=== PATIENT | female | born 1955 | race Caucasian/White ===

== ENCOUNTER 2016-11-22 14:42 | Emergency (ER) | payer MEDICARE ==
[2016-11-22 15:41] VITALS: BP 137/67
--- NOTE | 2016-11-22 16:11 | UC ---
Shivani Zafar Alok, scribed for Mario Mason MD on 11/22/16 at 1556 . FLU HPI - HPI Summary HPI Summary: 61F presents to the ED for a cough for the past 1.5 weeks. Pt states what began as slight nasal discharge and slight cough, progressed to mucous build up in the throat/chest, followed by back ache, chills, and a slight, subjective fever as well as a deeper cough with thicker mucous. Pt also notes raspy-ness at night as well as a left shoulder blade muscle spasm yesterday. Pt notes face/ ear fullness. Pt states in general her symptoms are worse at night. Pt has been taking Robitussin with no effect as well as ibuprofen for relief. Pt denies medications, tobacco, or ETOH. Pt is allergic to Ceclor. PSHx includes gallbladder surgery. - History of Current Complaint Chief Complaint: UCGeneralIllness Stated Complaint: COUGH,SORE SHOULDER Time Seen by Provider: 11/22/16 15:43 Hx Obtained From: Patient ?: No Onset/Duration: Lasting Weeks, Still Present Severity Currently: Moderate Severity Initially: Severe Associated Signs & Symptoms: Positive: Fever, Myalgia, Cough, Nasal Congestion - Allergy/Home Medications Allergies/Adverse Reactions: Allergies Allergy/AdvReac Type Severity Reaction Status Date / Time ceclor AdvReac Intermediate Nausea Uncoded 11/22/16 15:30 PMH/Surg Hx/FS Hx/Imm Hx Previously Healthy: Yes - Surgical History Surgical History: Yes Surgery Procedure, Year, and Place: lap cholecystectomy 2012 - pt unsure when - Social History Occupation: Disabled Lives: With Family Alcohol Use: None Substance Use Type: None Smoking Status (MU): Never Smoked Tobacco - Immunization History Most Recent Influenza Vaccination: not this year, never pt states Most Recent Pneumonia Vaccination: pt states no Review of Systems Constitutional: Fever, Chills, Fatigue ENT: Nasal Discharge, Other - face/ear fullness Respiratory: Cough Musculoskeletal: Myalgia All Other Systems Reviewed And Are Negative: Yes Physical Exam Triage Information Reviewed: Yes Appearance: Well-Appearing, No Pain Distress, Well-Nourished Vital Signs: Initial Vital Signs Temp 98.1 F 11/22/16 15:31 Pulse 84 11/22/16 15:31 Resp 18 11/22/16 15:31 BP 137/67 11/22/16 15:31 Pulse Ox 99 11/22/16 15:31 Vital Signs Reviewed: Yes Eyes: Positive: Conjunctiva Clear ENT: Positive: Hearing grossly normal, Pharynx normal, Nasal congestion, TMs normal, Other: - bilateral maxiallary sinus tenderness Neck: Positive: Supple, Nontender Respiratory: Positive: Chest non-tender, Lungs clear, Normal breath sounds Cardiovascular: Positive: RRR, No Murmur Abdomen Description: Positive: Nontender Musculoskeletal: Positive: Strength Intact, ROM Intact, No Edema Neurological: Positive: Alert, Muscle Tone Normal Psychological: Positive: Age Appropriate Behavior Skin: Negative: rashes Flu Course/Dx - Course Course Of Treatment: 61 yr old female with sinus congestion, post nasal drip, and cough for 1.5 weeks. Will treat for sinusitis. - Differential Dx/Diagnosis Provider Diagnoses: Sinusitis. Cough Discharge - Discharge Plan Condition: Good Disposition: HOME Prescriptions: Azithromycin TAB* [Zithromax TAB (Z-KYM) 250 mg #6 tabs] 2 tab PO .TODAY, THEN 1 DAILY #1 kym Patient Education Materials: Sinusitis (ED) Referrals: Jovon Charles MD [Primary Care Provider] - The documentation as recorded by the Shivani borges Alok accurately reflects the service I personally performed and the decisions made by , Mario Mason MD.
== END 2016-11-22 16:10 | disposition home or self-care (01) ==
LOC: UCEAST 14:42
DX: J32.9 Chronic sinusitis, unspecified (principal); R05 Cough; Z88.1 Allergy status to other antibiotic agents; Z90.49 Acquired absence of other specified parts of digestive tract
CPT/HCPCS: 99212; G0463

== ENCOUNTER 2017-04-16 16:32 | Emergency (ER) | payer MEDICARE ==
[2017-04-16 16:40] VITALS: BP 155/76
--- NOTE | 2017-04-16 16:52 | UC ---
Ear Complaint HPI - HPI Summary HPI Summary: Right ear has a crackling feeling---did have some cerumen come out of ear that seemed to make cracking worse - History of Current Complaint Chief Complaint: UCEar Stated Complaint: R EAR PAIN Time Seen by Provider: 04/16/17 16:36 Hx Obtained From: Patient ?: No Onset/Duration: Gradual Onset, Lasting Days Severity Initially: Mild Severity Currently: Mild Pain Intensity: 3 Pain Scale Used: 0-10 Numeric Aggravating Factors: Nothing Alleviating Factors: Nothing - Allergies/Home Medications Allergies/Adverse Reactions: Allergies Allergy/AdvReac Type Severity Reaction Status Date / Time ceclor AdvReac Intermediate Nausea Uncoded 11/22/16 15:30 Home Medications: Home Medications Ibuprofen [Advil] 400 mg PO 04/16/17 [History] PMH/Surg Hx/FS Hx/Imm Hx Previously Healthy: No - Surgical History Surgical History: Yes Surgery Procedure, Year, and Place: lap cholecystectomy 2012 - pt unsure when, has a spot on her lung that her doctor is working her up for 04/26 - Family History Known Family History: Positive: None - Social History Occupation: Retired Lives: With Family Alcohol Use: None Substance Use Type: None Smoking Status (MU): Never Smoked Tobacco - Immunization History Most Recent Influenza Vaccination: not this year, never pt states Most Recent Pneumonia Vaccination: pt states no Review of Systems Constitutional: Negative Skin: Negative Eyes: Negative ENT: Dental Pain - for recent dental extraction, Ear Ache - right ear Respiratory: Negative Cardiovascular: Negative Gastrointestinal: Negative Genitourinary: Negative Motor: Negative Neurovascular: Negative Musculoskeletal: Negative Neurological: Negative Psychological: Negative Is Patient Immunocompromised?: No All Other Systems Reviewed And Are Negative: Yes Physical Exam Triage Information Reviewed: Yes Appearance: Well-Appearing, Well-Nourished, Obese Vital Signs: Initial Vital Signs Temp 97.4 F 04/16/17 16:35 Pulse 99 04/16/17 16:35 Resp 18 04/16/17 16:35 BP 155/76 04/16/17 16:35 Pulse Ox 99 04/16/17 16:35 Vital Signs Reviewed: Yes Eye Exam: Normal Eyes: Positive: Conjunctiva Clear ENT Exam: Normal ENT: Positive: Normal ENT inspection, Hearing grossly normal, Pharynx normal, TMs normal - left, Other: - right ear cerumen impaction. Negative: Nasal congestion, Nasal drainage, Trismus, Muffled/hoarse voice Dental Exam: Normal Dental: Positive: Other: - healing dental extraction right posterior gum Neck exam: Normal Neck: Positive: Supple, Nontender Respiratory Exam: Normal Respiratory: Positive: Chest non-tender, No respiratory distress, No accessory muscle use Cardiovascular Exam: Normal Cardiovascular: Positive: RRR, Pulses Normal, Brisk Capillary Refill Musculoskeletal Exam: Normal Musculoskeletal: Positive: Strength Intact, ROM Intact, No Edema Neurological Exam: Normal Neurological: Positive: Alert, Muscle Tone Normal Psychological Exam: Normal Skin Exam: Normal Re-Evaluation - Re-Evaluation First Eval Change: Improved - Ear flushed cerumen removed with ease Ear Complaint Course/Dx - Course Course Of Treatment: use Ibuprofen for dental pain, follow blood pressure with Dr. Charles re-check prn - Differential Dx/Diagnosis Differential Diagnosis/HQI/PQRI: Cerumen Impaction, URI Provider Diagnoses: Resolved Right cerumen impaction Discharge - Discharge Plan Condition: Stable Disposition: HOME Patient Education Materials: Cerumen Impaction (ED), Hypertension (ED) Referrals: Jovon Charles MD [Primary Care Provider] - 2 Weeks
== END 2017-04-16 17:00 | disposition home or self-care (01) ==
LOC: UCEAST 16:32
DX: H61.21 Impacted cerumen, right ear (principal)
CPT/HCPCS: 99212; G0463

== ENCOUNTER 2018-03-29 08:34 | Day surgery (SDC) | payer MEDICARE ==
[~2018-03-29 08:34] MED LIST: Acetaminophen TAB* 325 MG PO PRN; Buffered Lidocaine 0.9% SYRIN* 5 ML/SYR SYRINGE INTRADERM ONE; Trypan Blue 0.06% SOL* 0.5 ML BTL ONE
[2018-03-29] MEDS ORDERED: Povidone Iodine 5% OPTH* 30 ML BTL ONE (09:53)
[2018-03-29] MEDS ORDERED: Ketorolac 0.5% OPHTH (NF) 0.5 % 5 ML BTL ONE (09:53)
[2018-03-29] MEDS ORDERED: Cyclopentolate 1% OPTH.SOL* 2 ML BTL ONE (09:53)
[2018-03-29] MEDS ORDERED: acetaZOLAMIDE TAB* 250 MG ONE (09:53)
[2018-03-29] MEDS ORDERED: Lidocaine 2% EPI 1:200000 MPF*10-20 ML VIAL ONE (09:53)
[2018-03-29] MEDS ORDERED: Lidocaine 1%* 5 ML VIAL ONE (09:53)
[2018-03-29] MEDS ORDERED: Neomycin/Polymy/Dex OPTH.SUSP* MAXITROL 0.1% 5 ML ONE (09:53)
[2018-03-29] MEDS ORDERED: Proparacaine 0.5% OPHTH.SOL* 15 ML BTL ONE (09:53)
[2018-03-29] MEDS ORDERED: Phenylephrine 2.5% OPTH.SOL* 2 ML BTL ONE (09:53)
[2018-03-29] MEDS ORDERED: Midazolam* 1 MG/ML 2 ML VIAL (2 MG) ONE (10:26)
[2018-03-29 11:23] VITALS: BP 135/66
--- NOTE | 2018-03-30 01:27 | OP ---
DATE OF OPERATION: 03/29/18 [facility] DATE OF : 51 SURGEON: Presley Krueger M.D. PREOPERATIVE DIAGNOSIS: Cataract, right eye. POSTOPERATIVE DIAGNOSIS: Cataract, right eye. OPERATIVE PROCEDURE: Extracapsular cataract extraction with intraocular lens implant right eye. DESCRIPTION OF PROCEDURE: The patient was brought to the operating room after being given 1/2% Alcaine with epinephrine drops in the preoperative area. The eye was prepped and draped in the usual sterile fashion. Sterile drape and eyelid speculum were placed. Again, topical 1/2% Alcaine with epinephrine was given. A paracentesis incision was made at the 9 o'clock position with the No.75 blade. Clear cornea incision 2.2 x 2.2-mm was created at the 12 o'clock position starting at the anterior limbus using the 2.2-mm keratome. The anterior chamber was irrigated with 0.4 mL of 1% non-preservative intracameral lidocaine and filled with DisCoVisc. A capsulorrhexis was completed using the cystotome and the Utrata forceps. Hydrodissection was performed with balanced salt solution. The lens nucleus was removed with the Phacoemulsification handpiece without incident. Cortex was removed with the irrigation-aspiration handpiece. The capsular bag was re-inflated using DisCoVisc and an [id number] 23.5 implant was inserted with the shooter. The irrigation-aspiration handpiece was used to remove all residual DisCoVisc. The eye was refilled with balanced salt solution and the wound checked and found to be watertight. Topical Maxitrol drops were given. VisionBlue was used to stain the anterior capsule prior to capsulorrhexis. Indication for complex cataract surgery: White cataract requiring capsular stain. [id number]/[facility] #: [id number] [facility]ENTERKaren
== END 2018-03-29 11:29 | disposition home or self-care (01) ==
LOC: OREAST 08:34
PROVIDERS: ATTEND Specialist
DX: H25.811 Combined forms of age-related cataract, right eye (principal); H01.021 Squamous blepharitis right upper eyelid; H01.024 Squamous blepharitis left upper eyelid; R06.02 Shortness of breath
CPT/HCPCS: A9270-GY; J2250; V2632

== ENCOUNTER 2018-04-05 16:24 | Emergency (ER) | payer MEDICARE ==
--- OUTSIDE RECORDS SUMMARY | 2018-04-05 16:31 | XMS REPORT | Continuity of Care Document ---
:1955 External Reference #:[id number] Author Name Presley Krueger M.D. Address [address] [facility] [place] [address] Care Team Providers Name Role Phone Jovon Charles M.D. Primary Care Physician Unavailable Payers Type Date Identification Numbers Payment Provider Subscriber Policy Number: [id number] Medicare - [facility] Roberta Pagan PayID: [id number] [address] [place] [address] [place] [address] Advance Directives Description No Information Available Problems Date Description Provider Status Onset: 01/02/2016 Combined form of senile cataract Presley Krueger M.D. Active Onset: Allergy Active Note: Multiple chemical sensitivities Onset: 10/11/2017 Squamous blepharitis Sussy King O.D. Active Onset: 10/11/2017 Nuclear senile cataract Sussy King O.D. Active Onset: Neoplasm of lung Active Note: Nodules - Not having biopsy done yet. Onset: Dyspnea Active Onset: 03/30/2018 Presence of intraocular lens Presley Krueger M.D. 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 Disability Leave ETOH Use Occasionally consumed alcohol in the past Tobacco Use Start: Unknown Patient has never smoked Recreational Drug Use Denies Drug Use Smoking Status Reviewed: 03/30/18 Patient has never smoked Allergies, Adverse Reactions, Alerts Date Description Reaction Status Severity Comments 01/02/2016 Ceclor Nausea and Vomiting Active Moderate 01/02/2016 Contrast Dye Active 10/11/2017 Petroleum Preparation Active 2018 Multiple Chemical Active Sensitivities 02/27/2018 Nickel Active Medications Medication Date Status Form Strength Qnty SIG Indications Ordering Provider Prednisolone/ 02/27/ Active Suspension 1-0.5-0.07 1 drop in Presley Diego Gatifloxacin2017 5% the right Arleo Bromfenac eye four M.D. times a day, and tapering according to schedule Artificial 02/22/ Active Solution 1-0.3% as needed Presley Diego Tears 2018 rarely Hemant Krueger Vitamin D / Active Tablets 2000Unit every day Unknown 0000 Vitamin C / Active Capsules 500mg 1 by mouth Unknown 0000 every day Calcium 500 / Hx Tablets 500-250-20 Unknown 0000 - 0mg-mg-Uni 2017 Immunizations Description No Information Available Vital Signs Description No Information Available Results Description No Information Available Procedures Date Code Description Status 03/29/2018 25709 Cataract Surgery Complex Completed 02/27/2018 18818 Ophthalmic Biometry Completed 02/27/2018 26666 Ophthalmic Biometry Completed 2018 50512 Est Patient Comprehensive Exam Completed 10/11/2017 13558 Est Patient Intermediate Exam Completed 07/20/2016 93079 Est Patient Intermediate Exam Completed 01/02/2016 61944 New Patient Comprehensive Exam Completed Encounters Type Date Location Provider Dx Diagnosis Office Visit 02/27/2018 Presley Krueger, Presley Krueger, H25.811 Combined forms of 11:30a shelbie BLACK M.D. age-related cataract, right eye H01.021 Squamous blepharitis right upper eyelid H01.024 Squamous blepharitis left upper eyelid H25.812 Combined forms of age-related cataract, left eye Plan of Treatment Future Appointment(s):04/21/2018 11:30 am - Sussy Knig O.D. at [facility], 04/06/2018 12:00 pm - Presley Krueger M.D. at [facility], 04/05/2018 7:00 am - Presley Krueger M.D. at [facility], 2017 - Presley Krueger M.D.H25.812 Combined forms of age-related cataract, left eyeComments:Smoking can increase the risk of developing or worsening any eye related disease, as well as affect your overall health. If you are a smoker , we strongly recommend that you quit.If you are not a smoker, we strongly recommend that you do not start. Dense cataract in the left eye.Follow up:For surgery. Please keep post op appointments as scheduled.Z96.1 Presence of intraocular lensComments:The artifical lens implant in your right eye appears to be stable. Since this is the first day after surgery, your right eye is still dilated and the vision will still be slightly blurry. The dilation will go down over the next day or two. Continue taking your eye drops as directed on the surgical calendar. If you have any questions, please call our office.
--- NOTE | 2018-04-05 16:45 | UC ---
Throat Pain/Nasal Esau HPI - HPI Summary HPI Summary: 63 yo female presents with sinus pain/pressure/congestion for the last 5 days. She is concerned because she is scheduled for a cataract removal on 04/15 and she cannot proceed with this procedure if she is sick. She has not taken anything OTC for her symptoms. Denies fever, chills, cough, SOB. - History of Current Complaint Stated Complaint: SINUS COMPLAINT Time Seen by Provider: 04/05/18 16:44 Hx Obtained From: Patient Onset/Duration: Gradual Onset - Allergies/Home Medications Allergies/Adverse Reactions: Allergies Allergy/AdvReac Type Severity Reaction Status Date / Time latex Allergy Rash Verified 04/05/18 16:42 CHEMICAL SENSTIVE Allergy Rash Uncoded 04/05/18 16:42 CONTRAST DYE Allergy Rash And Uncoded 04/05/18 16:42 Itching ceclor AdvReac Intermediate Nausea Uncoded 04/05/18 16:42 Home Medications: Home Medications Acetaminophen [Tylenol Extra Strength] 1,000 mg PO Q12HR PRN 04/05/18 [History Confirmed 04/05/18] Gokpfftqhyvy-Rzhfoozqvmdb-Kmmg 1 drop OPHTHALMIC QID 04/05/18 [History Confirmed 04/05/18] PMH/Surg Hx/FS Hx/Imm Hx - Additional Past Medical History Additional PMH: Cataracts - Surgical History Surgical History: Yes Surgery Procedure, Year, and Place: lap cholecystectomy 2012 - pt unsure when, has a spot on her lung that her doctor is working her up for 04/26 - Family History Known Family History: Positive: None - Social History Occupation: Retired Lives: With Family Alcohol Use: None Substance Use Type: None Smoking Status (MU): Never Smoked Tobacco Have You Smoked in the Last Year: No - Immunization History Most Recent Influenza Vaccination: not this year, never pt states Most Recent Pneumonia Vaccination: pt states no Review of Systems Constitutional: Negative Skin: Negative Eyes: Negative ENT: Nasal Discharge, Sinus Congestion, Sinus Pain/Tenderness Respiratory: Negative Cardiovascular: Negative Neurovascular: Negative Neurological: Negative Psychological: Negative All Other Systems Reviewed And Are Negative: Yes Physical Exam - Summary Physical Exam Summary: GENERAL: NAD. WDWN. No pain distress. SKIN: No rashes, sores, lesions, or open wounds. HEENT: Head: AT/NC Eyes: EOM intact. Conjunctiva clear without inflammation or discharge. Ears: Hearing grossly normal. TMs intact, no bulging, erythema, or edema. Nose: Nasal mucosa pink and moist. NTTP maxillary and frontal sinus. Throat: Posterior oropharynx without exudates, erythema, or tonsillar enlargement. Uvula midline. NECK: Supple. Nontender. No lymphadenopathy. CHEST: CTAB. No r/r/w. No accessory muscle use. Breathing comfortably and in no distress. CV: RRR. Without m/r/g. Pulses intact. Cap refill <2seconds NEURO: Alert. PSYCH: Age appropriate behavior. Triage Information Reviewed: Yes Vital Signs: Vital Signs: Temp Pulse Resp BP Pulse Ox 97.6 F 85 18 154/60 97 04/05/18 16:45 04/05/18 16:45 04/05/18 16:45 04/05/18 16:45 04/05/18 16:45 Vital Signs Reviewed: Yes Throat Pain/Nasal Course/Dx - Course Course Of Treatment: Susect viral sinusitis, however pt has an upcoming eye procedure and is very concerned about being ill for this and would prefer to be on antibiotics - therefre will place her on amoxicillin. - Differential Dx/Diagnosis Provider Diagnoses: Sinusitis Discharge - Sign-Out/Discharge Documenting (check all that apply): Patient Departure All imaging exams completed and their final reports reviewed: No Studies - Discharge Plan Condition: Stable Disposition: HOME Prescriptions: Amoxicillin PO (*) [Amoxicillin 500 MG CAP*] 500 mg PO Q12H #14 cap Patient Education Materials: Sinusitis (ED) Referrals: Jovon Charles MD [Primary Care Provider] - Additional Instructions: If you develop a fever, shortness of breath, chest pain, new or worsening symptoms - please call your PCP or go to the ED. Your blood pressure was high at todays visit. Please see your primary provider within 4 weeks for recheck and re-evaluation. - Billing Disposition and Condition Condition: STABLE Disposition: Home
[2018-04-05 16:51] VITALS: BP 154/60
== END 2018-04-05 17:10 | disposition home or self-care (01) ==
LOC: UCEAST 16:24
DX: J32.9 Chronic sinusitis, unspecified (principal); Z88.1 Allergy status to other antibiotic agents; Z91.041 Radiographic dye allergy status; Z91.040 Latex allergy status
CPT/HCPCS: 99212; G0463

== ENCOUNTER → 2018-05-24 08:33 | Day surgery (SDC) | payer MEDICARE ==
[~2018-05-24 08:33] MED LIST changes: +Cyclopentolate 1% OPTH.SOL* 2 ML BTL ONE; +Ketorolac 0.5% OPHTH (NF) 0.5 % 5 ML BTL ONE; +Lidocaine 1%* 5 ML VIAL ONE; +Lidocaine 2% EPI 1:200000 MPF*10-20 ML VIAL ONE; +Midazolam* 1 MG/ML 2 ML VIAL (2 MG) ONE; +Neomycin/Polymy/Dex OPTH.SUSP* MAXITROL 0.1% 5 ML ONE; +Phenylephrine 2.5% OPTH.SOL* 2 ML BTL ONE; +Povidone Iodine 5% OPTH* 30 ML BTL ONE; +Proparacaine 0.5% OPHTH.SOL* 15 ML BTL ONE; -Trypan Blue 0.06% SOL* 0.5 ML BTL ONE; +acetaZOLAMIDE TAB* 250 MG ONE
[2018-05-24 11:15] VITALS: BP 136/65
--- NOTE | 2018-05-24 13:07 | OP ---
DATE OF OPERATION: 05/24/2018. DATE OF : 1955. SURGEON: Presley Krueger M.D. PREOPERATIVE DIAGNOSIS: Cataract left eye. POSTOPERATIVE DIAGNOSIS: Cataract left eye. OPERATIVE PROCEDURE: Extracapsular cataract extraction with intraocular lens implant left eye. PROCEDURE: The patient was brought to the operating room after being given 1/2% Alcaine with epineph rine drops in the preoperative area. The eye was prepped and draped in the usual sterile fashion. S terile drape and eyelid speculum were placed. Again, topical 1/2% Alcaine with epinephrine was given . A paracentesis incision was made at the 3 o'clock position with the No.75 blade. Clear cornea inc ision 2.2 x 2.2-mm was created at the 6 o'clock position starting at the anterior limbus using the 2. 2-mm keratome. The anterior chamber was irrigated with 0.4 mL of 1% non-preservative intracameral li docaine and filled with DisCoVisc. A capsulorrhexis was completed using the cystotome and the Utrata forceps. Hydrodissection was performed with balanced salt solution. The lens nucleus was removed wi th the Phacoemulsification handpiece without incident. Cortex was removed with the irrigation-aspira tion handpiece. The capsular bag was re-inflated using DisCoVisc and an [id number] 24 implant was insert ed with the shooter. The irrigation-aspiration handpiece was used to remove all residual DisCoVisc. The eye was refilled with balanced salt solution and the wound checked and found to be watertight. Topical Maxitrol drops were given. [id number]/[facility] #: [id number]
== END | disposition home or self-care (01) ==
LOC: OREAST 08:33
PROVIDERS: ATTEND Specialist
DX: H25.812 Combined forms of age-related cataract, left eye (principal)
CPT/HCPCS: A9270-GY; J2250; V2632

== ENCOUNTER 2019-08-15 13:09 | Emergency (ER) | payer MEDICARE ==
--- OUTSIDE RECORDS SUMMARY | 2019-08-15 13:16 | XMS REPORT | Continuity of Care Document ---
:1955 External Reference #:[id number] Author Name Sussy King O.D. Address [address] [place] [address] Care Team Providers Name Role Phone Jovon Charles M.D. - Family Medicine Care Team Information Inspector Wreath Problems Active Problems Provider Date Combined form of senile cataract Presley Krueger M.D. Onset: 01/02/2016 Allergy Onset: Note: Multiple chemical sensitivities Squamous blepharitis Sussy King O.D. Onset: 10/11/2017 Nuclear senile cataract Sussy King O.D. Onset: 10/11/2017 Neoplasm of lung Onset: Note: Nodules - Not having biopsy done yet. Dyspnea Onset: Presence of intraocular lens Presley Krueger M.D. Onset: 03/30/2018 Bronchitis Onset: Note: 03/31/2018 Sinusitis Onset: Note: 03/31/2018 Allergic contact dermatitis of eyelid Katty Jaramillo O.D. Onset: 2017 Tear film insufficiency Sussy King O.D. Onset: 06/19/2019 Social History Type Date Description Comments Sex Unknown ETOH Use Occasionally consumed alcohol in the past Tobacco Use Start: Unknown Patient has never smoked Recreational Drug Use Denies Drug Use Smoking Status Reviewed: 06/19/19 Patient has never smoked Allergies, Adverse Reactions, Alerts Active Allergies Reaction Severity Comments Date Ceclor Nausea and Vomiting Moderate 01/02/2016 Contrast Dye 01/02/2016 Petroleum Preparation 10/11/2017 Multiple Chemical Sensitivities 2018 Nickel 02/27/2018 Medications Description No Active Medications Immunizations Description No Information Available Vital Signs Description No Information Available Results Description No Information Available Procedures Description No Information Available Medical Devices Description No Information Available Encounters Description No Information Available Assessments Date Code Description Provider 06/19/2019 Z96.1 Presence of intraocular lens Sussy King O.D. 06/19/2019 H04.123 Dry eye syndrome of bilateral lacrimal glands Sussy King O.D. Plan of Treatment 06/19/2019 - Sussy King O.D.Z96.1 Presence of intraocular lensComments: Smoking can increase the risk of developing or worsening any eye related disease , as well as affect your overall health. If you are a smoker, we strongly recommend that you quit.If you are not a smoker, we strongly recommend that you do not start. The artificial lens implants in both eyes appear to be stable at this time.Follow up:2 years You can expect to have your eyes dilated at your next visit. If Dr. King orders any additional testing, it may require extra time. We recommend that you bring sunglasses, as dilation drops often make you light sensitive until they wear off. We always recommend you bring someone to drive youThe Start Projecte if you are uncomfortable driving with your eyes dilated. If you have any questions before your next visit, feel free to call our office at .H04.123 Dry eye syndrome of bilateral lacrimal glandsComments:Both of your eyes appear to be dry. Use artificial tears as directed. You can use the tears more often if you are reading a book or are on the computer, as we tend to blink less, making our eyes dry out more.[facility] offers a few items in our optical department to help alleviate dry eye symptoms. Functional Status Description No Information Available Mental Status Description No Information Available Referrals Description No Information Available
[2019-08-15 13:30] VITALS: BP 157/77
--- NOTE | 2019-08-15 14:01 | UC ---
General HPI - HPI Summary HPI Summary: Patient states she had a head cold a few weeks ago and was on Amoxicillin - states symptoms were better but not completely and now her left ear and left glands are sore. She states she has a lot of congestion and mucus/phelgm and with productive cough - worse in the morning. No fevers. No V/D. Good PO. Having a hard time sleeping MEds; Reviewed - History of Current Complaint Chief Complaint: UCRespiratory Stated Complaint: SINUS ISSUE SWOLLEN GLANDS EAR PAIN Time Seen by Provider: 08/15/19 13:48 Pain Intensity: 0 - Allergy/Home Medications Allergies/Adverse Reactions: Allergies Allergy/AdvReac Type Severity Reaction Status Date / Time latex Allergy Rash Verified 08/15/19 13:30 CHEMICAL SENSTIVE Allergy Rash Uncoded 08/15/19 13:30 CONTRAST DYE Allergy Rash And Uncoded 08/15/19 13:30 Itching ceclor AdvReac Intermediate Nausea Uncoded 08/15/19 13:30 Home Medications: Home Medications Cholecalciferol (Vitamin D3) [Vitamin D3] 5 mcg PO DAILY 08/15/19 [History Confirmed 08/15/19] Dextromethorphan Polistirex [Robitussin ER] 2 teasp PO ONCE PRN 08/15/19 [ History Confirmed 08/15/19] PMH/Surg Hx/FS Hx/Imm Hx Previously Healthy: Yes - Surgical History Surgical History: Yes Surgery Procedure, Year, and Place: lap cholecystectomy 2012 - Family History Known Family History: Positive: None - Social History Alcohol Use: None Substance Use Type: None Smoking Status (MU): Never Smoked Tobacco Have You Smoked in the Last Year: No - Immunization History Most Recent Influenza Vaccination: not this year, never pt states Most Recent Pneumonia Vaccination: pt states no Review of Systems All Other Systems Reviewed And Are Negative: Yes ENT: Positive: Sore Throat, Nasal Discharge, Sinus Congestion Respiratory: Positive: Cough Physical Exam Triage Information Reviewed: Yes Appearance: Well-Appearing Vital Signs: Initial Vital Signs Temp 98.6 F 08/15/19 13:23 Pulse 81 08/15/19 13:23 Resp 18 08/15/19 13:23 BP 157/77 08/15/19 13:23 Pulse Ox 96 08/15/19 13:23 Vital Signs Reviewed: Yes ENT: Positive: Pharyngeal erythema, Nasal congestion, Nasal drainage, Other - clear fluid TM's worse on left Neck: Positive: Supple, Enlarged Nodes @ - anterior cervical chain on left Respiratory: Positive: Lungs clear, Normal breath sounds Cardiovascular: Positive: RRR, No Murmur Course/Dx - Course Course Of Treatment: This is a 64 yr old with URI s/s Nontoxic appearing Plan Recommend decongestant such as sudafed and antihistamine such as zyrtec for congestion and phelgm Can also use flonase and afrin nasal spray (afrin only for 2-3 days) Can use ibuprofen as needed for pain as directed If symptoms persist or worsen, recommend follow up with PCP or return to urgent care Recommend recheck blood pressure, if still elevated follow up with PCP to address - Diagnoses Provider Diagnosis: Viral syndrome Discharge ED - Sign-Out/Discharge Documenting (check all that apply): Patient Departure All imaging exams completed and their final reports reviewed: No Studies - Discharge Plan Condition: Good Disposition: HOME Patient Education Materials: Viral Syndrome (ED) Referrals: Jovon Charles MD [Primary Care Provider] - Additional Instructions: Recommend decongestant such as sudafed and antihistamine such as zyrtec for congestion and phelgm Can also use flonase and afrin nasal spray (afrin only for 2-3 days) as directed to help with nasal congestion Can use ibuprofen as needed for pain as directed If symptoms persist or worsen, recommend follow up with PCP or return to urgent care Recommend recheck blood pressure, if still elevated follow up with PCP to address - Billing Disposition and Condition Condition: GOOD Disposition: Home
== END 2019-08-15 14:08 | disposition home or self-care (01) ==
LOC: UCEAST 13:09
DX: B34.9 Viral infection, unspecified (principal); J02.9 Acute pharyngitis, unspecified; R05 Cough; R09.89 Other specified symptoms and signs involving the circulatory and respiratory systems; Z91.040 Latex allergy status; Z91.041 Radiographic dye allergy status; Z88.1 Allergy status to other antibiotic agents; Z91.09 Other allergy status, other than to drugs and biological substances
CPT/HCPCS: 99211; G0463

== ENCOUNTER 2024-05-02 05:03 | Inpatient (IN) ==
[2024-05-02 05:23] LABS: PO2 Arterial 159 mmHg (80-100)
[2024-05-02 05:25] LABS: PCO2 Arterial > 100 mmHg (35-45)
[2024-05-02 05:28] LABS: ABS Basophils 0.1 10^3/uL (0.0-0.1); ABS Eosinophils 0.6 10^3/uL (0.0-0.5); ABS Lymphocytes 1.5 10^3/uL (1.0-4.8); ABS Monocytes 1.4 10^3/uL (0.0-0.9); ABS Neutrophils 7.5 10^3/uL (1.5-7.6); ABS Nucleated RBC 0.01 10^3/ul; Hematocrit 38.6 % (35-45); Hemoglobin 12.8 g/dL (11.5-14.3); Lymphocyte % 13.5 %; Mean Corpuscular Hemoglobin 32.4 pg (27-33); Mean Corpuscular Hgb Conc 33.2 g/dL (31-36); Mean Corpuscular Volume 97.6 fL (80-97); Mean Platelet Volume 9.9 fL (7.5-11.2); Nucleated Red Blood Cells % 0.1 %/100WBC (0.0-0.8); Platelet Count 245 10^3/uL (150-450); Red Blood Count 3.96 10^6/uL (3.63-4.92); Red Cell Distribution Width 14.4 % (12-17); White Blood Count 11.1 10^3/uL (3.8-11.8)
[2024-05-02] MEDS: Etomidate 20 mg/10 ml 2 MG/ML 10 ml VIAL IV ONE (05:31)
[2024-05-02] MEDS: Succinylcholine 200 mg VIAL 20 mg/ml 10 ml VIAL (200 mg) IV ONE (05:31)
[2024-05-02 05:47] LABS: Potassium 4.5 mmol/L (3.5-5.0)
[2024-05-02 05:48] LABS: Albumin 2.6 g/dL (3.2-5.2); Albumin/Globulin Ratio 0.7 (1-3); C Reactive Protein 55.85 mg/L (<8.01); Creatinine, Serum 0.35 mg/dL (0.51-0.95); Globulin 3.5 g/dL (2-4); Magnesium 1.6 mg/dL (1.9-2.7); Total Bilirubin 0.7 mg/dL (0.2-1.0); Total Protein 6.1 g/dL (6.4-8.9); eGFR CKD-EPI 109.2 (>60)
[2024-05-02] MEDS: Propofol 10 mg/ml 100 ML BTL 1,000 MG/100 ML BTL IV SCH (06:04)
[2024-05-02 06:12] LABS: Urine Appearance Extra Turbid; Urine Bilirubin Negative (Negative); Urine Blood 3+ (Negative); Urine Glucose Negative (Negative); Urine Ketones Trace (Negative); Urine Nitrite Negative (Negative); Urine Protein 3+ (>=300 mg/dL) (Negative); Urine Urobilinogen 1+ (Negative)
[2024-05-02] MEDS: Lactated Ringers SEPSIS* BAG 1,920 ML IV ONE (06:15)
[2024-05-02] MEDS ORDERED: Zosyn per Pharmacy NOTE FOLLOW UP SCH (07:00)
[2024-05-02] MEDS: Piperacillin/Tazobac 3.375 BAG 3.375 GM/100 ML BAG IV ONE (07:16)
[2024-05-02] MEDS: Magnesium Sulf 4 GM/100 ML IV 4,000 MG/100 ML BAG IVPB ONE (07:50)
[2024-05-02 07:52] LABS: Urine Bacteria 1+ /HPF (Absent); Urine Red Blood Cell 3+(>10/hpf) /HPF (0-Trace); Urine Renal Epithelial Cells Present /HPF (Absent); Urine Squamous Epithelial Cell Present /HPF (Absent); Urine White Blood Cell 3+(>20/hpf) /HPF (0-Trace)
[2024-05-02] MEDS ORDERED: Sulfur Hexaflouride MICROSPHR 25 MG VIAL IV PRN (08:01)
[2024-05-02 08:08] LABS: Urine Color Orange
[2024-05-02] MEDS: Albumin Human 5% 12.5 GM/250 ML BTL IV ONE (09:08)
[2024-05-02] MEDS: Norepinephrine 4 MG/250mL D5W 4,000 MCG/250 ML BAG IV SCH (09:35)
[2024-05-02] MEDS: fentaNYL 100 mcg/2 ml 50 MCG/ML VIAL IV SLOW PU PRN (10:26)
[2024-05-02] MEDS: LORazepam 2 mg VIAL 1 ml ONE (11:13)
[2024-05-02] MEDS: Norepinephrine 4 MG/250mL D5W 4,000 MCG/250 ML BAG IV ONE (11:16)
[2024-05-02] MEDS: ZOSYN 3.375 GM Q8H per EXTENDED INFUSION IV SCH (11:51)
[2024-05-02] MEDS: Enoxaparin 40 MG/0.4 ML SYR SUBCUT SCH (13:57)
[2024-05-02] MEDS: Chlorhexidine MOUTHWASH 0.12% 15 ML UDC TOPICAL SCH (15:37)
[2024-05-02] MEDS: Famotidine IV 10 MG/ML 2 ml VIAL (20 mg) IV SLOW PU SCH (15:37)
[2024-05-02] MEDS ORDERED: Lorazepam PYXIS KEY PRN (15:55)
[2024-05-02] MEDS: LORazepam 2 mg VIAL 1 ml IV PUSH SCH (16:05)
[2024-05-02] MEDS: Morphine 10 MG/ML VIAL (1 ml) IV SCH (16:06)
[2024-05-02 16:29] VITALS: BP 102/58
[2024-05-02] MEDS: Scopolamine 1 mg/72hr PATCH TRANSDERM ONE (16:46)
== END 2024-05-02 17:10 | disposition expired | DRG 208 ==
LOC: ED 05:03 → ICU 07:22
PROVIDERS: ADMIT Internal Medicine Critical Care Medicine; ATTEND Internal Medicine Critical Care Medicine